=== PATIENT | female | born 1990 | race African-American/Black ===

== ENCOUNTER 2016-07-02 13:14 | Emergency (ER) | payer MEDICAID | END 2016-07-02 14:34 | disposition home or self-care (01) | DX: N30.01 Acute cystitis with hematuria (principal); J45.909 Unspecified asthma, uncomplicated; Z87.19 Personal history of other diseases of the digestive system ==

== ENCOUNTER 2016-08-21 18:35 | Emergency (ER) | payer MEDICAID ==
[2016-08-21 18:43] VITALS: BP 134/75
--- NOTE | 2016-08-21 19:20 | ED Physician Documentation ---
PD HPI UPPER EXT INJURY - Stated complaint Stated Complaint: L SHOULDER PAIN - Chief complaint Chief Complaint: Ext Problem - History obtained from History obtained from: Patient - History of Present Illness Location: Left, Shoulder Type of injury: No: Fall, Twist, Blunt / blow Timing - onset: How many days ago (2) Timing - duration: Days (2) Timing - details: Gradual onset, Still present, Waxing and waning Improved by: Rest Worsened by: Moving, Other (abduction and rotational movements. Hurts suprascapular area to posterior shoulder.) Associated symptoms: No: Weakness, Numbness, Swelling Similar symptoms before: Has not had sx before Recently seen: Not recently seen Review of Systems Constitutional: denies: Fever, Chills Skin: denies: Rash, Lesions Neurologic: denies: Focal weakness, Numbness PD PAST MEDICAL HISTORY - Past Medical History Past Medical History: Yes Cardiovascular: None Respiratory: Asthma Neuro: None Endocrine/Autoimmune: None GI: Pancreatitis NEGATIVE TURNER: None : None HEENT: None Psych: Depression, Anxiety Musculoskeletal: Other Derm: None - Past Surgical History Past Surgical History: Yes General: Other /NEGATIVE TURNER: section, Tubal ligation - Present Medications Home Medications: Ambulatory Orders Medication Instructions Recorded Confirmed Albuterol Sulfate [Proair Hfa 8.5 gm PO Q6HR PRN 07/02/16 08/21/16 Inhaler] Beclomethasone 40 Mcg [Qvar 40] 1 puffs PO DAILY 08/21/16 08/21/16 Dexamethasone [Decadron] 4 mg PO DAILY #5 tablet 08/21/16 Naproxen 375 mg PO BID #20 tablet 08/21/16 Oxycodone HCl/Acetaminophen 1 each PO Q6H PRN #15 tablet 08/21/16 [Percocet 5-325 mg Tablet] - Allergies Allergies/Adverse Reactions: Allergies Allergy/AdvReac Type Severity Reaction Status Date / Time bismuth subsalicylate Allergy Unknown Verified 08/21/16 18:43 [From Pepto-Bismol] - Social History Does the pt smoke?: Yes Smoking Status: Current every day smoker Does the pt drink ETOH?: No Does the pt have substance abuse?: No - Immunizations Immunizations are current?: Yes - POLST Patient has POLST: No PD ED PE NORMAL - Vitals Vital signs reviewed: Yes - General General: Alert and oriented X 3, No acute distress, Well developed/nourished - Neck Neck: Supple, no meningeal sign, No bony TTP, No adenopathy - Derm Derm: Normal color, Warm and dry, No rash - Extremities Extremities: Other (left shoulder tender posteriorly and also some tender in suprascapular area. ) - Neuro Neuro: Alert and oriented X 3, No motor deficit, No sensory deficit, Normal speech Results - Vitals Vitals: Oxygen O2 Source Room air PD MEDICAL DECISION MAKING - ED course Complexity details: considered differential, d/w patient Departure - Departure Disposition: Home, Self Care Clinical Impression: Shoulder tendonitis Qualifiers: Laterality: left Qualified Code(s): M75.82 - Other shoulder lesions, left shoulder Condition: Stable Record reviewed to determine appropriate education?: Yes Instructions: Tendonitis and Tenosynovitis Follow-Up: Anthony Narvaez MD [Provider Admit Priv/Credential] - Prescriptions: Dexamethasone [Decadron] 4 mg PO DAILY #5 tablet Naproxen 375 mg PO BID #20 tablet Oxycodone HCl/Acetaminophen [Percocet 5-325 mg Tablet] 1 each PO Q6H PRN #15 tablet PRN Reason: Pain Comments: Limited lifting and repetitive use of the left arm/shoulder for 4-5 days. Change to Naproxen twice daily and also add steroid Decadron daily for 5 days. Tylenol or Percocet for pain as needed. Recheck with Ortho/PMD if not better over the next 5-6 days. Forms: Activity restrictions Discharge Date/Time: 08/21/16 19:58
[2016-08-21] MEDS ORDERED: DEXAMETHASONE 10 MG/ML VIAL PO STA (19:47)
[2016-08-21] MEDS ORDERED: oxyCOD/ACETAMIN 5 MG/325 MG TABLET PO STA (19:47)
[2016-08-21] MEDS ORDERED: oxyCOD/ACETAMIN 5 MG/325 MG TABLET PO ONE (19:49)
[2016-08-21] MEDS ORDERED: DEXAMETHASONE 10 MG/ML VIAL ONE (19:50)
== END 2016-08-21 19:58 | disposition home or self-care (01) ==
LOC: ED 18:35
DX: M75.92 Shoulder lesion, unspecified, left shoulder (principal); W01.0XXA Fall on same level from slipping, tripping and stumbling without subsequent striking against object, initial encounter; J45.909 Unspecified asthma, uncomplicated; F17.200 Nicotine dependence, unspecified, uncomplicated
CPT/HCPCS: 99283; A9270

== ENCOUNTER 2017-09-30 13:57 | Emergency (ER) | payer MEDICAID ==
[2017-09-30] MEDS ORDERED: predniSONE 20 MG TABLET PO STA (14:51)
[2017-09-30] MEDS ORDERED: IPRATROPIUM/ALBUTEROL 3 ML NEB INH STA (14:51)
--- NOTE | 2017-09-30 15:41 | XRAY Report ---
Procedure Date: 09/30/2017 Accession Number: [id number] / [id number] Procedure: XR - Chest 2 View X-Ray CPT Code: 96311 FULL RESULT: EXAM: CHEST RADIOGRAPHY EXAM DATE: 09/30/2017 03:34 PM. CLINICAL HISTORY: Persistent cough. COMPARISON: 06/15/2008. TECHNIQUE: 2 views. FINDINGS: Lungs/Pleura: No focal opacities evident. No pleural effusion. No pneumothorax. Normal volumes. Mediastinum: Heart and mediastinal contours are unremarkable. Other: None. IMPRESSION: Normal 2-view chest radiography. [facility]
[2017-09-30 16:03] VITALS: BP 116/76
--- NOTE | 2017-09-30 16:05 | ED Physician Documentation ---
PD HPI DYSPNEA - Stated complaint Stated Complaint: COUGH/CONGESTED - Chief complaint Chief Complaint: Resp - History obtained from History obtained from: Patient - History of Present Illness Timing - onset: How many weeks ago (2) Timing - details: Gradual onset, Still present Inciting event(s): Out of meds Improved by: O2, Inhaler/neb Worsened by: Exertion Associated symptoms: Cough, Wheezing. No: Fever Similar symptoms before: Work up / diagnostics, Treatment Recently seen: Not recently seen - Additional information Additional information: patient is a 27 year old female with a history of ashtma who is presenting to the emergency department for wheezing and shortness of breath. Patient states that her symptoms have been going on for a few weeks and she thinks she needs an inhaler. Patient denies any fever or chills. 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: section, Tubal ligation - Present Medications Home Medications: Ambulatory Orders Medication Instructions Recorded Confirmed Albuterol Sulfate [Proair Hfa 8.5 gm PO Q6HR PRN 07/02/16 08/21/16 Inhaler] Albuterol 2.5 mg INH Q4H PRN #30 neb 09/30/17 Albuterol Sulf [Ventolin Hfa 2 puffs INH Q4HR PRN #1 inhaler 09/30/17 Inhaler] Fluticasone 44 Mcg [Flovent] 2 puffs INH BID #1 inhaler 09/30/17 Fluticasone [Flonase] 1 sprays DAT DAILY 09/30/17 09/30/17 Loratadine [Claritin] 10 mg PO 09/30/17 predniSONE [Prednisone] 40 mg PO DAILY 5 Days tablet 09/30/17 - Allergies Allergies/Adverse Reactions: Allergies Allergy/AdvReac Type Severity Reaction Status Date / Time bismuth subsalicylate Allergy Unknown Verified 09/30/17 14:05 [From Pepto-Bismol] - Social History Does the pt smoke?: Yes Smoking Status: Former smoker Does the pt drink ETOH?: No Does the pt have substance abuse?: No - Immunizations Immunizations are current?: Yes - POLST Patient has POLST: No PD ED PE NORMAL - Vitals Vital signs reviewed: Yes - General General: Alert and oriented X 3 - HEENT HEENT: Atraumatic - Neck Neck: No JVD - Cardiac Cardiac: RRR - Extremities Extremities: No calf tenderness / cord - Neuro Neuro: Alert and oriented X 3 Eye Opening: Spontaneous PD ED PE EXPANDED - Respiratory Respiratory: Wheezing, Right upper lobe, Right middle lobe, Right lower lobe, Left upper lobe, Left lower lobe. No: Distress Results - Vitals Vitals: Vital Signs - 24 hr 09/30/17 09/30/17 09/30/17 14:03 15:09 16:02 Temperature 36.5 C 36.5 C Heart Rate 105 H 110 H 98 Respiratory 18 18 18 Rate Blood Pressure 129/82 H 116/76 O2 Saturation 98 96 Oxygen O2 Source Room air - Rads (name of study) chest x-ray Radiology: Final report received (no acute pulmonary pathology) PD MEDICAL DECISION MAKING - ED course Complexity details: reviewed old records, reviewed results, re-evaluated patient , considered differential, d/w patient ED course: Patient was seen and examined at bedside. Patient had wheezing in most agarwal. Patient was started on prednisone and duoneb treatments. chest xray was within normal limits. Patient was still wheezing after her original treatments but stated that she wanted to go home. Patient stated she could do more treatments at home. Patient was saturating well on room air and was stable for discharge with outpatient follow up. - Sepsis Event Vital Signs: Vital Signs - 24 hr 09/30/17 09/30/17 09/30/17 14:03 15:09 16:02 Temperature 36.5 C 36.5 C Heart Rate 105 H 110 H 98 Respiratory 18 18 18 Rate Blood Pressure 129/82 H 116/76 O2 Saturation 98 96 Oxygen O2 Source Room air Departure - Departure Disposition: 01 Home, Self Care Clinical Impression: Asthma Condition: Good Instructions: ED Bronchitis Asthmatic Follow-Up: primary,care provider [Other] - Within 3 Days Prescriptions: Albuterol Sulf [Ventolin Hfa Inhaler] 2 puffs INH Q4HR PRN #1 inhaler PRN Reason: Wheezing Albuterol 2.5 mg INH Q4H PRN #30 neb PRN Reason: Wheezing Fluticasone 44 Mcg [Flovent] 2 puffs INH BID #1 inhaler predniSONE [Prednisone] 40 mg PO DAILY 5 Days tablet Comments: Your diagnostics today were within normal limits. there is no sign of pneumonia but your symptoms are likely being caused by bronchitis. you should continue with the prednisone for the next 4 days and then back to your maintenance therapy. You may return to the emergency department at any time for new, worsening or uncontrollable symptoms. Discharge Date/Time: 09/30/17 16:24
== END 2017-09-30 16:24 | disposition home or self-care (01) ==
LOC: ED 13:57
DX: J45.909 Unspecified asthma, uncomplicated (principal); Z87.891 Personal history of nicotine dependence
CPT/HCPCS: 71046; 99283; J7512

== ENCOUNTER 2017-11-09 09:56 | Emergency (ER) | payer MEDICAID ==
[2017-11-09 10:04] VITALS: BP 129/83
[2017-11-09] MEDS ORDERED: DEXAMETHASONE 10 MG/ML VIAL PO STA (10:40)
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
== END 2017-11-09 10:58 | disposition home or self-care (01) ==
LOC: ED 09:56
DX: M43.6 Torticollis (principal); F17.200 Nicotine dependence, unspecified, uncomplicated
CPT/HCPCS: 99283

== ENCOUNTER 2018-01-20 16:48 | Emergency (ER) | payer OTHER, MEDICAID ==
[2018-01-20 17:13] VITALS: BP 119/74
[2018-01-20] MEDS ORDERED: CYCLOBENZAPRINE 10 MG TABLET PO STA (19:43)
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
== END 2018-01-20 21:25 | disposition home or self-care (01) ==
LOC: ED 16:48
DX: S13.9XXA Sprain of joints and ligaments of unspecified parts of neck, initial encounter (principal); V43.62XA Car passenger injured in collision with other type car in traffic accident, initial encounter; F17.200 Nicotine dependence, unspecified, uncomplicated
CPT/HCPCS: 72040; 99283; A9270

== ENCOUNTER 2018-11-26 08:00 | Outpatient (CLI) | payer MEDICAID ==
[2018-11-26 18:58] LABS: BASOPHILS % (AUTO) 0.3 %; EOSINOPHILS # (AUTO) 0.3 10^3/uL (0.0-0.7); EOSINOPHILS % (AUTO) 5.4 %; HGB - HEMOGLOBIN 13.3 g/dL (12.0-16.0); LYMPHOCYTES # (AUTO) 2.6 10^3/uL (1.5-3.5); LYMPHOCYTES % (AUTO) 41.1 %; MEAN CORPUSCULAR HEMOGLOBIN 28.7 pg (27.0-31.0); MEAN CORPUSCULAR VOLUME 86.9 fL (81.0-99.0); MEAN PLATELET VOLUME 10.6 fL (7.9-10.8); MONOCYTES # (AUTO) 0.5 10^3/uL (0.0-1.0); MONOCYTES % (AUTO) 7.3 %; NEUTROPHILS # (AUTO) 2.9 10^3/uL (1.5-6.6); NEUTROPHILS % (AUTO) 45.6 %; PLT - PLATELET COUNT 247 10^3/uL (130-450); RED BLOOD COUNT 4.64 10^6/uL (4.20-5.40); RED CELL DISTRIBUTION WIDTH 13.2 % (12.0-15.0); WHITE BLOOD COUNT 6.3 x10^3/uL (4.8-10.8)
[2018-11-26 19:11] LABS: CALCIUM 9.3 mg/dL (8.5-10.3)
== END 2018-11-26 23:59 | disposition home or self-care (01) ==
LOC: LAB.N 08:00
PROVIDERS: ATTEND Physician Assistant Medical
DX: R55 Syncope and collapse (principal)
CPT/HCPCS: 36415; 80048; 85025

== ENCOUNTER 2020-01-19 16:58 | Outpatient (CLI) | payer MEDICAID ==
[2020-01-19 18:31] LABS: BASOPHILS % (AUTO) 0.4 %; EOSINOPHILS # (AUTO) 0.2 10^3/uL (0.0-0.7); EOSINOPHILS % (AUTO) 3.1 %; HGB - HEMOGLOBIN 11.9 g/dL (12.0-16.0); LYMPHOCYTES % (AUTO) 28.8 %; MEAN CORPUSCULAR HEMOGLOBIN 27.6 pg (27.0-31.0); MEAN CORPUSCULAR HGB CONC 31.7 g/dL (32.0-36.0); MEAN PLATELET VOLUME 10.5 fL (7.9-10.8); MONOCYTES # (AUTO) 0.5 10^3/uL (0.0-1.0); MONOCYTES % (AUTO) 6.7 %; NEUTROPHILS # (AUTO) 4.2 10^3/uL (1.5-6.6); NEUTROPHILS % (AUTO) 60.6 %; PLT - PLATELET COUNT 216 10^3/uL (130-450); RED BLOOD COUNT 4.31 10^6/uL (4.20-5.40); RED CELL DISTRIBUTION WIDTH 13.3 % (12.0-15.0); WHITE BLOOD COUNT 6.9 x10^3/uL (4.8-10.8)
[2020-01-19 18:55] LABS: ALBUMIN 4.3 g/dL (3.2-5.5); ALBUMIN/GLOBULIN RATIO 1.4 (1.0-2.2); BILIRUBIN,TOTAL 0.2 mg/dL (0.2-1.0); CALCIUM 9.2 mg/dL (8.5-10.3); TOTAL PROTEIN 7.3 g/dL (6.7-8.2)
[2020-01-19 19:03] LABS: HEMOGLOBIN A1c% 5.4 % (4.27-6.07)
== END 2020-01-19 23:59 | disposition home or self-care (01) ==
LOC: LAB.WCP 16:58
PROVIDERS: ATTEND Physician Assistant
DX: R55 Syncope and collapse (principal)
CPT/HCPCS: 36415; 80053; 83036; 84443; 85025

== ENCOUNTER 2020-02-03 10:08 | Outpatient (CLI) | payer MEDICAID ==
[2020-02-03] MEDS ORDERED: IOVERSOL 320 100 ML VIAL IVP ONE ×2 (10:33→18:52)
--- NOTE | 2020-02-03 12:58 | CT Report ---
PROCEDURE: ANGIO CHEST W/WO INDICATIONS: NEAR SYNCOPE CONTRAST: IV CONTRAST: Optiray 320 ml: 70 PO CONTRAST: *NO PO CONTRAST TECHNIQUE: After the administration of intravenous contrast, 2 mm thick sections acquired from the pulmonary api pierre to the posterior costophrenic angles. 3-dimensional maximum intensity projection (MIP) coronal a nd sagittal reformats were then acquired through the thorax. For radiation dose reduction, the follow ing was used: automated exposure control, adjustment of mA and/or kV according to patient size. COMPARISON: FINDINGS: Image quality: Excellent. Pulmonary arteries: Pulmonary arteries are normal in size, and demonstrate no intraluminal filling d efects to suggest central pulmonary embolism. Lungs and pleura: Lungs are clear. No pleural effusions or pneumothorax. Central and peripheral ai rways are patent. Mediastinum: Heart size is normal, without pericardial effusion. No mediastinal or hilar adenopathy . Thoracic aorta is normal in caliber and enhancement. Esophagus is normal in caliber, without hiat al hernia. Bones and chest wall: No suspicious bony lesions. Ribs and thoracic spine appear intact throughout. The thyroid is normal. No axillary or supraclavicular adenopathy. Abdomen: Visualized upper abdominal solid organs appear normal in the early arterial phase of enhanc ement. IMPRESSION: No pulmonary embolus is seen, there is no sign of cardiac enlargement or pericardial effusion. Source of near syncopal episode is not found. Reviewed by: Balwinder Steele MD on 02/03/2020 12:57 PM [facility] Approved by: Balwinder Steele MD on 02/03/2020 12:57 PM PST Station ID: [id number]
== END 2020-02-03 10:09 | disposition home or self-care (01) ==
LOC: DI 10:08
PROVIDERS: ATTEND Physician Assistant
DX: R55 Syncope and collapse (principal); R06.02 Shortness of breath
CPT/HCPCS: 71275; 93306; Q9967

== ENCOUNTER 2020-11-14 07:51 | Emergency (ER) | payer MEDICAID ==
--- NOTE | 2020-11-14 08:07 | ED Physician Documentation ---
PD HPI UPPER EXT INJURY - Stated complaint Stated Complaint: RT SHOULDER PX - Chief complaint Chief Complaint: Ext Problem - History obtained from History obtained from: Patient - History of Present Illness Location: Right, Shoulder Type of injury: Other (repetitive lifting and turning at work. gradual onset of pain anterolateral shoulder.). No: Fall, Twist Where injury occurred: Work Timing - onset: How many days ago (3-4) Timing - duration: Days (3-4) Worsened by: Moving (abduction and extension, but not hurting with internal/external rotation nor with reaching behind own back.) Associated symptoms: No: Weakness, Numbness, Swelling, Discolored Similar symptoms before: Has not had sx before Review of Systems Constitutional: denies: Fever, Chills Nose: denies: Rhinorrhea / runny nose, Congestion Throat: denies: Sore throat Respiratory: denies: Cough Skin: denies: Rash, Lesions Neurologic: denies: Focal weakness, Numbness PD PAST MEDICAL HISTORY - Past Medical History Cardiovascular: None Respiratory: Asthma Neuro: None Endocrine/Autoimmune: None GI: Pancreatitis 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 : None HEENT: None Psych: Depression, Anxiety Musculoskeletal: Other Derm: None - Past Surgical History Past Surgical History: Yes 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, Tubal ligation - Present Medications Home Medications: Ambulatory Orders Medication Instructions Recorded Confirmed Albuterol Sulfate [Proair Hfa 8.5 gm PO Q6HR PRN 07/02/16 11/14/20 Inhaler] Budesonide/Formoterol Fumarate 1 inh INH DAILY 11/14/20 11/14/20 [Symbicort 160-4.5 Mcg Inhaler] HYDROcod/ACETAM 5/325 [[place] 5/325] 1 ea PO Q6H PRN #10 tablet 11/14/20 Montelukast Sodium 10 mg PO DAILY 11/14/20 11/14/20 dexAMETHasone [Decadron] 4 mg PO DAILY #5 tablet 11/14/20 tiZANidine [Zanaflex] 4 mg PO Q8H PRN #25 tablet 11/14/20 - Allergies Allergies/Adverse Reactions: Allergies Allergy/AdvReac Type Severity Reaction Status Date / Time bismuth subsalicylate Allergy Unknown Verified 11/14/20 08:05 [From Pepto-Bismol] - Social History Does the pt smoke?: Yes Smoking Status: Current every day smoker Does the pt drink ETOH?: No Does the pt have substance abuse?: No - Immunizations Immunizations are current?: Yes - POLST Patient has POLST: No PD ED PE NORMAL - Vitals Vital signs reviewed: Yes - General General: Alert and oriented X 3, No acute distress, Well developed/nourished - Derm Derm: Normal color, Warm and dry, No rash - Extremities Extremities: Other (right shoulder with muscular tenderness suprascapular area and to lateral shoulder. ) - Neuro Neuro: Alert and oriented X 3, No motor deficit, No sensory deficit Results - Vitals Vitals: Vital Signs - 24 hr 11/14/20 11/14/20 08:02 08:52 Temperature 37.2 C 36.5 C Heart Rate 87 81 Respiratory 16 12 Rate Blood Pressure 120/61 140/100 H O2 Saturation 99 98 Oxygen O2 Source Room air PD MEDICAL DECISION MAKING - ED course Complexity details: considered differential (gradual onset with repetitive use, no impact/forceful injury. Seems c/w tendonitis acutely. ), d/w patient Departure - Departure Disposition: 01 Home, Self Care Clinical Impression: Shoulder tendonitis Qualifiers: Laterality: right Qualified Code(s): M77.8 - Other enthesopathies, not elsewhere classified Condition: Stable Record reviewed to determine appropriate education?: Yes Instructions: Tendonitis and Tenosynovitis Follow-Up: Clovis Clarke MD [Provider Admit Priv/Credential] - Prescriptions: dexAMETHasone [Decadron] 4 mg PO DAILY #5 tablet HYDROcod/ACETAM 5/325 [[place] 5/325] 1 ea PO Q6H PRN #10 tablet PRN Reason: Pain tiZANidine [Zanaflex] 4 mg PO Q8H PRN #25 tablet PRN Reason: Spasms Comments: This does sound likely to be some inflammation of the muscle tendons through the shoulder (tendinitis). This often represents an overuse injury. As such have light use of the right arm and shoulder for the next 4 to 5 days. Use the sling periodically if needed for comfort. Use range of motion of the shoulder periodically however to keep it from being stiff. Anti-inflammatories of Decadron steroid daily for the next 5 days. Tizanidine muscle relaxant for spasms and stiffness. Add Tylenol every 4-6 hours if needed for pain or hydrocodone if needed for worse pain. My narcotic instructions I am prescribing a short course of narcotic pain medication for you. These are potentially dangerous and addictive medications that should be used carefully. These medications may constipate you. Take an cvhp-yzf-ohuatpb stool softener such as docusate twice daily with plenty of water while taking these medications. If you go 24 hours without a bowel movement, take zijs-bin-fiqlaav MiraLAX, per package instructions. Do not drink or drive while taking these medications. If you received narcotic or sedating medications while in the emergency depart ment do not drive for 24 hours. Store this medication in a safe, secure place and out of reach of children. It is a violation of federal law to give or sell this medication to another person or to use in a manner other than prescribed. The ED will not refill narcotic prescriptions, including prescriptions lost or stolen. You can dispose of unwanted medications at the [facility]'s office or at several pharmacies such as [facility]. Recheck if not better over the next week. Forms: Activity restrictions Discharge Date/Time: 11/14/20 08:54
[2020-11-14] MEDS ORDERED: DEXAMETHASONE 10 MG/ML VIAL PO STA (08:26)
[2020-11-14] MEDS ORDERED: methocarbamoL 500 MG TABLET PO STA (08:26)
[2020-11-14] MEDS ORDERED: CHERRY SYRUP 10 ML UDC PO ONE (08:26)
[2020-11-14] MEDS ORDERED: ACETAMINOPHEN 325 MG TABLET PO STA (08:27)
[2020-11-14 08:53] VITALS: BP 140/100
== END 2020-11-14 08:54 | disposition home or self-care (01) ==
LOC: ED 07:51
DX: M70.811 Other soft tissue disorders related to use, overuse and pressure, right shoulder (principal); Y93.89 Activity, other specified; Y99.0 Civilian activity done for income or pay; F17.200 Nicotine dependence, unspecified, uncomplicated
CPT/HCPCS: 99283; A9270

== ENCOUNTER 2021-01-23 18:21 | Emergency (ER) | payer MEDICAID ==
--- NOTE | 2021-01-23 18:54 | XRAY Report ---
PROCEDURE: Foot 3 View LT INDICATIONS: Trauma TECHNIQUE: 3 views of the foot were acquired. COMPARISON: None FINDINGS: Bones: No fractures or dislocations. No suspicious bony lesions. Soft tissues: No tibiotalar joint effusion. Achilles tendon appears normal. IMPRESSION: No acute left foot fracture or dislocation. Reviewed by: Ladarius Bundy MD on 01/23/2021 6:53 PM PDT Approved by: Ladarius Bundy MD on 01/23/2021 6:53 PM PDT Station ID: [id number]
[2021-01-23] MEDS ORDERED: oxyCODONE 5 MG TABLET PO STA (19:34)
--- NOTE | 2021-01-23 19:38 | ED Physician Documentation ---
PD HPI LOWER EXT INJURY - Stated complaint Stated Complaint: L FOOT INJURY - Chief complaint Chief Complaint: Trauma Ext - History obtained from History obtained from: Patient - History of Present Illness PD HPI LOW EXT INJURY LOCATION: Left Type of injury: Twist Where injury occurred: Street Pain level max: 8 Pain level now: 8 Improved by: Rest Worsened by: Moving, Palpating Associated symptoms: Swelling - Additional information Additional information: Patient is a 30-year-old female who presents to the emergency department after twisting her foot while walking off of a curb at approximately 1:00 today. The pain is steadily increased since that time. Not relieved with Motrin and Tylenol. Worse with walking, better with rest. 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, Tubal 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 - Present Medications Home Medications: Ambulatory Orders Medication Instructions Recorded Confirmed Albuterol Sulfate [Proair Hfa 8.5 gm PO Q6HR PRN 07/02/16 11/14/20 Inhaler] Budesonide/Formoterol Fumarate 1 inh INH DAILY 11/14/20 11/14/20 [Symbicort 160-4.5 Mcg Inhaler] HYDROcod/ACETAM 5/325 [[place] 5/325] 1 ea PO Q6H PRN #10 tablet 11/14/20 Montelukast Sodium 10 mg PO DAILY 11/14/20 11/14/20 dexAMETHasone [Decadron] 4 mg PO DAILY #5 tablet 11/14/20 tiZANidine [Zanaflex] 4 mg PO Q8H PRN #25 tablet 11/14/20 Ibuprofen [Motrin] 800 mg PO Q8H PRN #30 tablet 01/23/21 Oxycodone HCl/Acetaminophen 1 - 2 each PO Q6H PRN #14 tablet 01/23/21 [Percocet 5-325 mg Tablet] - Allergies Allergies/Adverse Reactions: Allergies Allergy/AdvReac Type Severity Reaction Status Date / Time bismuth subsalicylate Allergy Unknown Verified 01/23/21 18:28 [From Pepto-Bismol] - Social History Does the pt smoke?: Yes Smoking Status: Current every day smoker Does the pt drink ETOH?: No Does the pt have substance abuse?: No - Immunizations Immunizations are current?: Yes - POLST Patient has POLST: No PD ED PE NORMAL - Vitals Vital signs reviewed: Yes - General General: Alert and oriented X 3, No acute distress - HEENT HEENT: Moist mucous membranes - Derm Derm: Warm and dry - Extremities Extremities: Other (No tenderness about the left ankle. There is some tenderness over the dorsum of the left foot and near the base of the fifth metatarsal. Neurovascularly intact. Otherwise normal examination of the foot and ankle) - Neuro Neuro: Alert and oriented X 3 Results - Vitals Vitals: Vital Signs - 24 hr 01/23/21 01/23/21 18:28 19:54 Temperature 36.5 C 36.5 C Heart Rate 100 89 Respiratory 16 16 Rate Blood Pressure 130/90 H 131/88 H O2 Saturation 98 99 Oxygen O2 Source Room air - Rads (name of study) Left foot x-ray Radiology: Final report received, EMP read contemporaneously, See rad report (No acute bony abnormality) PD MEDICAL DECISION MAKING - ED course Complexity details: reviewed results, re-evaluated patient, considered differential, d/w patient ED course: Patient given crutches and placed in a postoperative shoe. No acute findings on x-ray. We will place on pain medication for home and have her follow-up with her doctor if she is still having symptoms in 1 week. I am prescribing a short course of short-acting opioid pain medication for this patient. 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 I have discussed that the opioids are for short term therapy only, and will not be refilled from the ED. patient counseled regarding signs and symptoms for which I believe and urgent re-evaluation would be necessary. Patient with good understanding of and agreement to plan and is comfortable going home at this time This document was made in part using voice recognition software. While efforts are made to proofread this document, sound alike and grammatical errors may occur. Departure - Departure Disposition: 01 Home, Self Care Clinical Impression: Sprain of left foot Qualifiers: Encounter type: initial encounter Qualified Code(s): S93.602A - Unspecified sprain of left foot, initial encounter Condition: Good Instructions: ED Sprain Foot Follow-Up: your,doctor in 1 week for repeat evaluation [Other] Prescriptions: Ibuprofen [Motrin] 800 mg PO Q8H PRN #30 tablet PRN Reason: PAIN &/OR FEVER Oxycodone HCl/Acetaminophen [Percocet 5-325 mg Tablet] 1 - 2 each PO Q6H PRN #14 tablet PRN Reason: pain Comments: Your prescriptions were sent to [facility] in [place]. Please follow-up with your doctor for further care. You may bear weight as tolerated. Your x-ray does not show any acute abnormalities today. Continue to rest and ice the area. I am prescribing a short course of narcotic pain medication for you. These are potentially dangerous and addictive medications that should be used carefully. These medications may constipate you. Take an mcxq-mym-egycvha stool softener (docusate) twice daily with plenty of water while taking these medications. If you go 24 hours without a bowel movement, take cgjp-dqr-nqkzakk miralax, per package instructions. Do not drink or drive while taking these medications. If you received narcotic or sedating medications while in the emergency department, do not drive for 24 hours. Store this medication in a safe, secure place and out of reach of children. It is a violation of federal law to give or sell this medication to another person or to use in a manner other than prescribed. The ED will not refill narcotic prescriptions, including prescriptions lost or stolen. To dispose of unwanted medications: 1. [facility] at [address] [facility] [facility] in [place] has a medication drop box. They accept prescription medications (in pill form) Saturday through Saturday 9:00 a.m. to 5:00 p.m. 2. [facility], [place] [employer] accepts prescription medications (in pill form only) for disposal year round. Call for more information. 3. Contact the [facility] for the next [facility] sponsored prescription sha g collection event. , [phone], or [phone]; Discharge Date/Time: 01/23/21 19:57
[2021-01-23 19:55] VITALS: BP 131/88
== END 2021-01-23 19:57 | disposition home or self-care (01) ==
LOC: ED 18:21
DX: S93.602A Unspecified sprain of left foot, initial encounter (principal); X50.1XXA Overexertion from prolonged static or awkward postures, initial encounter; Y93.01 Activity, walking, marching and hiking; Y92.410 Unspecified street and highway as the place of occurrence of the external cause; F17.200 Nicotine dependence, unspecified, uncomplicated
CPT/HCPCS: 73630; 99283; A9270

== ENCOUNTER → 2021-07-05 | Outpatient (CLI) | payer OTHER, MEDICAID | LOC: LAB.N 08:00 | PROVIDERS: ATTEND Family Medicine | DX: J03.90 Acute tonsillitis, unspecified (principal) | CPT/HCPCS: 87070 ==

== ENCOUNTER 2022-07-27 08:47 | Outpatient (CLI) | payer OTHER, MEDICAID | END 2022-07-27 08:48 | disposition home or self-care (01) | LOC: MAC.INF 08:47 | PROVIDERS: ATTEND Nurse Practitioner | DX: R00.2 Palpitations (principal) | CPT/HCPCS: 93246 ==

== ENCOUNTER 2022-07-29 08:12 | Emergency (ER) | payer OTHER, MEDICAID ==
--- OUTSIDE RECORDS SUMMARY | 2022-07-29 08:42 | EXTERNAL MEDICAL SUMMARY RPT | Continuity of Care Document ---
:1990 Author Organization [facility] Address [address] [place] [address] Phone Allergies No information. Encounters No information. Functional Status No information. Immunizations No information. Medications No information. Problems date description facility 2022-07-16 12:[address] [facility] Procedures No information. Results/Labs No information. Social History No information. Vital Signs No information.
--- NOTE | 2022-07-29 09:12 | ED Physician Documentation ---
PD HPI HEENT - Stated complaint Stated Complaint: LT BLACK EYE - Chief complaint Chief Complaint: Heent - History obtained from History obtained from: Patient - Additional information Additional information: The pt comes to the ED with CC of discoloration under her L eye. She states it looks like a bruise, but she does not know how it got there. She is not aware of any trauma. She began to notice a few days ago that the area felt sore to the touch, and over the course of that time, began to notice development of a small contusion tracking under her lower eyelid. She reports slight puffiness o f her upper eyelid, but no pain. No visual changes. No eye discomfort, redness, or discharge. No other complaints at this time. 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, Tubal ligation - Present Medications Home Medications: Ambulatory Orders Medication Instructions Recorded Confirmed Albuterol Sulfate [Proair Hfa 1 - 4 puffs IH Q4HR PRN 07/02/16 07/29/22 Inhaler] Budesonide/Formoterol Fumarate 1 inh INH DAILY 11/14/20 07/29/22 [Symbicort 160-4.5 Mcg Inhaler] Montelukast Sodium 10 mg PO DAILY 11/14/20 07/29/22 Ipratropium/Albuterol [Duoneb] 3 ml INH Q6H PRN 08/29/21 07/29/22 Triamcinolone Acetonide [Nasacort] 2 spr NS DAILY 08/29/21 07/29/22 - Allergies Allergies/Adverse Reactions: Allergies Allergy/AdvReac Type Severity Reaction Status Date / Time bismuth subsalicylate Allergy Unknown Verified 07/29/22 08:21 [From Pepto-Bismol] - Social History Does the pt smoke?: No Smoking Status: Never smoker Does the pt drink ETOH?: Yes Does the pt have substance abuse?: No - Immunizations Immunizations are current?: Yes - POLST Patient has POLST: No PD ED PE NORMAL - Vitals Vital signs reviewed: Yes - General General: Alert and oriented X 3, No acute distress, Well developed/nourished - HEENT HEENT: PERRL, EOMI, Moist mucous membranes, Other (mild, small contusion tracking along the inferior edge of L lower eyelid. Minimal edema. No conjunctival injection. No hyphema or subconj. hemorrhage. Mild tenderness of eyelid. No signs of other facial trauma.) - Respiratory Respiratory: No respiratory distress - Derm Derm: Warm and dry - Extremities Extremities: No deformity - Neuro Neuro: Alert and oriented X 3 - Psych Psych: Normal mood, Normal affect Results - Vitals Vitals: Oxygen O2 Source Room air PD Medical Decision Making - ED course Complexity details: considered differential, d/w patient ED course: I d/w the pt that I am not sure what has caused her sx today. She does not recall any trauma, and there is no evidence of infection. Physical exam findings are minimal, and the pt is well-appearing. I suspect this is a benign process, but we have discussed the need for follow-up for further concerns. Departure - Departure Disposition: 01 Home, Self Care Clinical Impression: Periorbital contusion of left eye Qualifiers: Encounter type: initial encounter Qualified Code(s): S05.12XA - Contusion of eyeball and orbital tissues, left eye, initial encounter Condition: Stable Instructions: Black Eye Comments: It is not clear what has caused the apparent bruising on your face. There is no evidence of infection and the discoloration is nonblanching, indicating that it is from broken blood vessels. This would be consistent with a bruise. There are other conditions that can cause this but generally, we would not expect the findings to be so focused to such a small area. There is no thickening of the tissue, inflammatory redness, or sensation of a pocket of fluid under the skin to indicate a soft tissue infection. You do not have any clogged ducts or hair follicles along your eyelid and the inside of your light eyelid and your eye both look good. You have not had any trauma that you can recall to raise concern for fractures to your facial bones. At this point in time, it is not clear what happened but there is no indication that there is anything more than a benign process that will resolve on its own. Please follow-up with your primary doctor as needed. If you begin to develop redness and firmness of the tissue, or if you develop fevers or chills, please have the area rechecked. Oth erwise, you may apply ice packs and use ibuprofen and Tylenol if needed. Discharge Date/Time: 07/29/22 09:21
[2022-07-29 09:21] VITALS: BP 123/77
== END 2022-07-29 09:21 | disposition home or self-care (01) ==
LOC: ED 08:12
DX: S05.12XA Contusion of eyeball and orbital tissues, left eye, initial encounter (principal)
CPT/HCPCS: 99281; 99283

== ENCOUNTER 2022-09-06 14:59 | Outpatient (CLI) | payer OTHER, MEDICAID | END 2022-09-06 15:00 | disposition home or self-care (01) | LOC: MAC.INF 14:59 | PROVIDERS: ATTEND Nurse Practitioner | DX: R94.31 Abnormal electrocardiogram [ECG] [EKG] (principal); I47.20 Ventricular tachycardia, unspecified; I49.1 Atrial premature depolarization; I49.3 Ventricular premature depolarization | CPT/HCPCS: 93248 ==

== ENCOUNTER 2022-12-02 15:50 | Emergency (ER) | payer OTHER, MEDICAID ==
[2022-12-02 16:14] LABS: BASOPHILS % (AUTO) 0.3 %; EOSINOPHILS # (AUTO) 0.3 10^3/uL (0.0-0.7); EOSINOPHILS % (AUTO) 2.7 %; HCT - HEMATOCRIT 39.5 % (37.0-47.0); HGB - HEMOGLOBIN 13.1 g/dL (12.0-16.0); LYMPHOCYTES # (AUTO) 3.3 10^3/uL (1.5-3.5); LYMPHOCYTES % (AUTO) 32.1 %; MEAN CORPUSCULAR HEMOGLOBIN 28.4 pg (27.0-31.0); MEAN CORPUSCULAR HGB CONC 33.2 g/dL (32.0-36.0); MEAN CORPUSCULAR VOLUME 85.7 fL (81.0-99.0); MEAN PLATELET VOLUME 9.8 fL (7.9-10.8); MONOCYTES # (AUTO) 0.8 10^3/uL (0.0-1.0); NEUTROPHILS # (AUTO) 5.8 10^3/uL (1.5-6.6); NEUTROPHILS % (AUTO) 56.5 %; PLT - PLATELET COUNT 270 10^3/uL (130-450); RED BLOOD COUNT 4.61 10^6/uL (4.20-5.40); RED CELL DISTRIBUTION WIDTH 12.8 % (12.0-15.0); WHITE BLOOD COUNT 10.2 x10^3/uL (4.8-10.8)
[2022-12-02 16:27] LABS: ALBUMIN 4.4 g/dL (3.2-5.5); ALBUMIN/GLOBULIN RATIO 1.6 (1.0-2.2); BILIRUBIN,TOTAL 0.3 mg/dL (0.2-1.0); CALCIUM 9.2 mg/dL (8.5-10.3); CREATININE 1.1 mg/dL (0.6-1.3); POTASSIUM 3.9 mmol/L (3.5-4.5); TOTAL PROTEIN 7.2 g/dL (6.4-8.9)
[2022-12-02 16:37] LABS: BILIRUBIN,URINE NEGATIVE (NEGATIVE); GLUCOSE, URINE (UA) NEGATIVE (NEGATIVE); KETONES,URINE (UA) NEGATIVE (NEGATIVE); LEUKOCYTE ESTERASE, URINE TRACE (NEGATIVE); NITRITE,URINE NEGATIVE (NEGATIVE); OCCULT BLOOD,URINE TRACE-INTA (NEGATIVE); PH,URINE 7.5 PH (5.0-7.5); PROTEIN,URINE NEGATIVE (NEGATIVE); UROBILINOGEN,URINE 0.2 (NORMAL) E.U./dL (NORMAL)
[2022-12-02 16:38] LABS: CLARITY,URINE HAZY (CLEAR); HCG UR QUAL NEGATIVE
[2022-12-02 16:47] LABS: BACTERIA,URINE Moderate /HPF (None Seen); RBC,URINE 0-5 /HPF (0-5); SQUAMOUS EPITHELIAL CELL,UR FEW Squamous (<= Few); WBC,URINE >25 /HPF (0-5)
[2022-12-02] MEDS: cefTRIAXone 1 GM VIAL IM STA (17:16)
[2022-12-02] MEDS: LIDOCAINE 1% 2 ML VIAL MC ONE (17:17)
[2022-12-02] MEDS: KETOROLAC 30 MG/ML VIAL IVP STA (17:19)
--- NOTE | 2022-12-02 17:23 | ED Physician Documentation ---
PD HPI ABD PAIN - Stated complaint Stated Complaint: BACK/SIDE PX - Chief complaint Chief Complaint: Abd Pain - History obtained from History obtained from: Patient - History of Present Illness Timing - onset: Today Timing - duration: Hours Timing - details: Gradual onset, Still present Quality: Aching, Pain Location: LUQ Radiation: Left flank Improved by: Other (nothing) Worsened by: Palpation Associated symptoms: Nausea. No: Fever, Vomiting, Hematemesis, Diarrhea, Constipation Similar symptoms before: Diagnosis (UTI) Recently seen: Not recently seen - Additional information Additional information: 32-year-old Carmen Espino comes to the emergency department today with a chief complaint that she has been having some spasms in her bladder yesterday and that today she has developed some pain in her left flank and she feels the pain radiating along her abdomen down into her pelvis. She has not had fever with this she has had slight nausea. She feels that the pain is worse with palpation and with movement and there is nothing that she has been able to do that will help with the pain. She cannot get into a specific position to get rid of it.She has not had fever or vomiting. Review of Systems Constitutional: denies: Fever Eyes: denies: Decreased vision Ears: denies: Ear pain, Drainage/discharge Nose: denies: Congestion Throat: denies: Sore throat Respiratory: denies: Dyspnea, Cough GI: reports: Abdominal Pain, Nausea. denies: Vomiting, Constipation, Diarrhea : reports: Dysuria, Frequency Skin: denies: Rash Musculoskeletal: reports: Back pain. denies: Neck pain, Extremity pain PD PAST MEDICAL HISTORY - Past Medical History Cardiovascular: None Respiratory: Asthma Neuro: None Endocrine/Autoimmune: None GI: Pancreatitis HIV PREVENTION SPECIALIST: Miscarriage(s) : None HEENT: None Psych: Depression, Anxiety Musculoskeletal: Other Derm: None - Past Surgical History Past Surgical History: Yes General: Other /HIV PREVENTION SPECIALIST: section, Tubal ligation - Present Medications Home Medications: Ambulatory Orders Medication Instructions Recorded Confirmed Albuterol Sulfate [Proair Hfa 1 - 4 puffs IH Q4HR PRN 07/02/16 07/29/22 Inhaler] Budesonide/Formoterol Fumarate 1 inh INH DAILY 11/14/20 07/29/22 [Symbicort 160-4.5 Mcg Inhaler] Montelukast Sodium 10 mg PO DAILY 11/14/20 07/29/22 Ipratropium/Albuterol [Duoneb] 3 ml INH Q6H PRN 08/29/21 07/29/22 Triamcinolone Acetonide [Nasacort] 2 spr NS DAILY 08/29/21 07/29/22 HYDROcod/ACETAM 5/325 [[place] 5/325] 1 - 2 tablet PO Q6H PRN #14 tablet 12/02/22 Metoprolol Succinate [Toprol Xl] 25 mg PO DAILY 12/02/22 12/02/22 Sulfamethox/Trimeth 800/160 1 each PO BID #14 tablet 12/02/22 [Bactrim Ds] - Allergies Allergies/Adverse Reactions: Allergies Allergy/AdvReac Type Severity Reaction Status Date / Time bismuth subsalicylate Allergy Unknown Verified 12/02/22 15:59 [From Pepto-Bismol] - Social History Does the pt smoke?: No Smoking Status: Never smoker Does the pt drink ETOH?: Yes Does the pt have substance abuse?: No - Immunizations Immunizations are current?: Yes - POLST Patient has POLST: No PD ED PE NORMAL - Vitals Vital signs reviewed: Yes (Hypertensive) - General General: Alert and oriented X 3, No acute distress, Well developed/nourished - HEENT HEENT: Atraumatic, PERRL, EOMI - Neck Neck: Supple, no meningeal sign, No bony TTP - Cardiac Cardiac: RRR, No murmur - Respiratory Respiratory: No respiratory distress, Clear bilaterally - Abdomen Abdomen: Normal bowel sounds, Soft, Non tender, Non distended, No organomegaly - Back Back: No spinal TTP, Other (There is CVA tenderness to the left kidney espec ially to bimanual palpation.) - Derm Derm: Normal color, Warm and dry, No rash - Extremities Extremities: No deformity, No edema - Neuro Neuro: Alert and oriented X 3, lead custodian 2-12 intact, No motor deficit, No sensory deficit, Normal speech Eye Opening: Spontaneous Motor: Obeys Commands Verbal: Oriented GCS Score: 15 - Psych Psych: Normal mood, Normal affect Results - Vitals Vitals: Vital Signs - 24 hr 12/02/22 12/02/22 12/02/22 16:00 17:52 18:46 Temperature 37.1 C Heart Rate 87 69 77 Respiratory 16 16 16 Rate Blood Pressure 134/80 H 114/77 123/68 O2 Saturation 98 99 100 Oxygen O2 Source Room air - Labs Labs: Laboratory Tests 12/02/22 12/02/22 12/02/22 16:09 16:10 16:10 WBC 10.2 RBC 4.61 Hgb 13.1 Hct 39.5 MCV 85.7 MCH 28.4 MCHC 33.2 RDW 12.8 Plt Count 270 MPV 9.8 Neut # (Auto) 5.8 Lymph # (Auto) 3.3 Wilkes # (Auto) 0.8 Eos # (Auto) 0.3 Baso # (Auto) 0.0 Absolute Nucleated RBC 0.00 Nucleated RBC % 0.0 Sodium 136 Potassium 3.9 Chloride 103 Carbon Dioxide 27 Anion Gap 6.0 BUN 20 Creatinine 1.1 Estimated GFR (MDRD) 69 L Glucose 92 Calcium 9.2 Total Bilirubin 0.3 AST 15 ALT 15 Alkaline Phosphatase 79 Total Protein 7.2 Albumin 4.4 Globulin 2.8 Albumin/Globulin Ratio 1.6 Lipase 122 H Urine Color YELLOW Urine Clarity HAZY Urine pH 7.5 Ur Specific [place] 1.020 Urine Protein NEGATIVE Urine Glucose (UA) NEGATIVE Urine Ketones NEGATIVE Urine Occult Blood TRACE-INTA Urine Nitrite NEGATIVE Urine Bilirubin NEGATIVE Urine Urobilinogen 0.2 (NORMAL) Ur Leukocyte Esterase TRACE H Urine RBC 0-5 Urine WBC >25 H Ur Squamous Epith Cells FEW Squamous Urine Bacteria Moderate H Ur Microscopic Review INDICATED Urine Culture Comments INDICATED Urine HCG, Qual NEGATIVE - Rads (name of study) CT abdomen and pelvis Relevant Findings:: EMP independent interpretation of test (Unremarkable exam. No evidence of kidney stone.) Procedures - Bedside sono Bedside sono by EMP: With use of POCUS the left kidney is imaged it is sonographically tender there does appear to be some hydronephrosis. PD Medical Decision Making - ED course Complexity details: reviewed old records, reviewed results, re-evaluated patient, considered differential, d/w patient, d/w family Reviewed Lab Results: We reviewed a complete blood count showing a normal white blood cell count normal hemoglobin hematocrit and platelets. Chemistries were equally benign with normal electrolytes normal kidney and liver function urinalysis showed a s pecific gravity 1.020 trace occult blood trace leukocyte Estrace and greater than 125 white blood cells per high-powered field there was moderate bacteria present in the specimen and the specimen did make the grade for culture. The hCG was negative. My interpretation of these laboratory test in combination with my physical examination leads me to the diagnosis of pyelonephritis. We did find trace occult blood in the urine and some evidence of hydro on POCUS and a CT of the abdomen pelvis was undertaken to rule out the possibility of a stone along with infection. There was no evidence of stone. ED course: 32-year-old Carmen Espino presents with left flank pain and urinary symptoms appears to have urinary tract infection on evaluation of the urine. SShe did not undergo CT scanning of the abdomen and pelvis because of some abnormalities to her laboratory study and the findings on POCUS.he does have a tender left kidney. She is diagnosed with pyelonephritis she is administered intravenous saline Rocephin and Toradol for treatment. Departure - Departure Disposition: 01 Home, Self Care Clinical Impression: Pyelonephritis Condition: Stable Instructions: ED Kidney Infec Female Follow-Up: Ariana Talbot ARNP [Primary Care Provider] - Prescriptions: Sulfamethox/Trimeth 800/160 [Bactrim Ds] 1 each PO BID #14 tablet HYDROcod/ACETAM 5/325 [[place] 5/325] 1 - 2 tablet PO Q6H PRN #14 tablet PRN Reason: Pain Comments: Carmen today looks like you have an infection in your left kidney. You may have additional pain even past the resolution of the infection. I have E scribed some antibiotic and pain medication to [facility] in [place]. The expectation with treatment is improvement in symptoms day by day. We will h ave sensitivities to the organism isolated in about 2 to 3 days. If you get a call from us you may need to change your antibiotic. Discharge Date/Time: 12/02/22 18:47
[2022-12-02] MEDS: cefTRIAXone 1 GM in SODIUM CHLORIDE 0.9% MINIBAG 100 ML IV STA (17:49)
[2022-12-02] MEDS: SODIUM CHLORIDE 0.9% 1,000 ML IV STA (17:49)
[2022-12-02] MEDS ORDERED: cefTRIAXone 1 GM VIAL ONE (17:50)
[2022-12-02] MEDS: HYDROcod/ACET 5/325 Prepack 4 PO STA (18:46)
[2022-12-02 18:48] VITALS: BP 123/68; O2SAT 100
--- NOTE | 2022-12-02 19:18 | CT Report ---
PROCEDURE: CT abdomen pelvis without contrast INDICATIONS: L flank pain TECHNIQUE: Helical axial CT of the abdomen and pelvis was obtained without intravenous contrast and reformatted in multiple planes. Radiation dose reduction was achieved utilizing automated exposure co ntrol or adjustment of mA and/or kV according to patient size. COMPARISON: None. FINDINGS: Study limited by motion artifact Lower thorax: The lung bases are clear. Heart size normal. No hiatal hernia. Liver: Normal in size and attenuation. No contour deformity present. Biliary system: No calcified cholelithiasis or pericholecystic inflammation. No evidence of bile du ct dilatation. Pancreas: Unremarkable without mass or inflammation evident. Spleen: Normal in size and density. Adrenals: Low-density 1.2 cm nodule in the left adrenal gland, probable adenoma. Right gland unremark able. Reproductive system: Unremarkable as visualized. Urinary system: Normal renal size and attenuation. No renal calculi, hydronephrosis, or solid mass p resent. Urinary bladder unremarkable. Gastrointestinal system: The bowel appears unremarkable with no evidence of bowel obstruction or inf lammation. The stomach appears unremarkable. Appendix: No findings to suggest acute appendicitis. Peritoneal spaces: No mesenteric or retroperitoneal adenopathy. No free air. No free fluid. Vasculature: The IVC, aorta and iliac vasculature are unremarkable. Abdominal Wall: Abdominal wall is intact without evidence of ventral or inguinal hernias. Musculoskeletal: Normal bone mineralization. No acute fractures. IMPRESSION: No acute CT findings in the abdomen and pelvis. No evidence of renal calculi are diverticulosis. Incidental small low-density nodule in the left jaw gland, probable adenoma. Reviewed by: Cesar Morgan MD on 12/02/2022 6:17 PM EDUARDO Approved by: Cesar Morgan MD on 12/02/2022 6:17 PM AKSALENA Station ID: [id number]
== END 2022-12-02 18:47 | disposition home or self-care (01) ==
LOC: ED 15:50
DX: N12 Tubulo-interstitial nephritis, not specified as acute or chronic (principal); Z79.899 Other long term (current) drug therapy; Z79.51 Long term (current) use of inhaled steroids
CPT/HCPCS: 36415; 80053; 81001; 81003; 81025; 83690; 85025; 87077; 87086; 96365; 96375; 99284

== ENCOUNTER 2023-03-03 20:22 | Emergency (ER) | payer OTHER, MEDICAID ==
[2023-03-03 20:42] VITALS: O2SAT 100
[2023-03-03] MEDS ORDERED: CHERRY SYRUP 10 ML UDC PO ONE (20:50)
[2023-03-03] MEDS ORDERED: DEXAMETHASONE 10 MG/ML VIAL PO STA (20:50)
[2023-03-03] MEDS ORDERED: IPRATROPIUM/ALBUTEROL 3 ML NEB INH STA (20:50)
--- NOTE | 2023-03-03 20:59 | ED Physician Documentation ---
PD HPI URI - Stated complaint Stated Complaint: SOA,WHEEZING - Chief complaint Chief Complaint: Resp - History obtained from History obtained from: Patient - Additional information Additional information: 32-year-old female with history of asthma presents for asthma exacerbation. Patient has been using her home inhaler as well as her DuoNebs without significant relief. She has been out of her Symbicort and montelukast due to insurance issues. Review of Systems Constitutional: denies: Fever, Chills Nose: denies: Rhinorrhea / runny nose, Congestion Throat: denies: Dental pain / toothache, Sore throat Cardiac: denies: Chest pain / pressure, Palpitations, Calf pain Respiratory: reports: Dyspnea, Wheezing. denies: Cough GI: denies: Abdominal Pain, Nausea, Vomiting : denies: Dysuria, Frequency, Hesitancy PD PAST MEDICAL HISTORY - Past Medical History Past Medical History: Yes Cardiovascular: Other Respiratory: Asthma Neuro: None Endocrine/Autoimmune: None GI: Pancreatitis TRACK MAN: Miscarriage(s) : None HEENT: None Psych: Depression, Anxiety Musculoskeletal: Other Derm: None Other Past Medical History: POTS - Past Surgical History Past Surgical History: Yes General: Other /TRACK MAN: section, Tubal ligation - Present Medications Home Medications: Ambulatory Orders Medication Instructions Recorded Confirmed Albuterol Sulfate [Proair Hfa 1 - 4 puffs IH Q4HR PRN 07/02/16 07/29/22 Inhaler] Budesonide/Formoterol Fumarate 1 inh INH DAILY 11/14/20 07/29/22 [Symbicort 160-4.5 Mcg Inhaler] Montelukast Sodium 10 mg PO DAILY 11/14/20 07/29/22 Ipratropium/Albuterol [Duoneb] 3 ml INH Q6H PRN 08/29/21 07/29/22 Triamcinolone Acetonide [Nasacort] 2 spr NS DAILY 08/29/21 07/29/22 HYDROcod/ACETAM 5/325 [[place] 5/325] 1 - 2 tablet PO Q6H PRN #14 tablet 12/02/22 Metoprolol Succinate [Toprol Xl] 25 mg PO DAILY 12/02/22 12/02/22 Sulfamethox/Trimeth 800/160 1 each PO BID #14 tablet 12/02/22 [Bactrim Ds] Albuterol Sulfate [Proair 90 mcg IH Q4H PRN #1 each 03/03/23 Respiclick] Budesonide/Formoterol Fumarate 10.2 gm IH Q6H PRN #10.2 gm 03/03/23 [Symbicort 160-4.5 Mcg Inhaler] Ipratropium [Atrovent] 0.5 mg INH Q6H 30 Days #300 ml 03/03/23 Ipratropium/Albuterol [Duoneb] 3 ml INH Q6H PRN #60 ml 03/03/23 Montelukast [Singulair] 10 mg PO QPM #30 tablet 03/03/23 predniSONE [Deltasone] 40 mg PO DAILY 5 Days #10 tablet 03/03/23 - Allergies Allergies/Adverse Reactions: Allergies Allergy/AdvReac Type Severity Reaction Status Date / Time No Known Drug Allergies Allergy Verified 03/03/23 20:39 - Social History Does the pt smoke?: No Smoking Status: Never smoker Does the pt drink ETOH?: Yes Does the pt have substance abuse?: No - Immunizations Immunizations are current?: Yes - POLST Patient has POLST: No PD ED PE NORMAL - Vitals Vital signs reviewed: Yes - General General: Alert and oriented X 3, No acute distress, Well developed/nourished - HEENT HEENT: Atraumatic - Neck Neck: Supple, no meningeal sign - Cardiac Cardiac: RRR, Strong equal pulses - Respiratory Respiratory: No respiratory distress, Other (faint basilar expiratory wheezes) Results - Vitals Vitals: Vital Signs - 24 hr 03/03/23 03/03/23 03/03/23 20:35 21:00 22:20 Temperature 36.4 C L Heart Rate 100 94 91 Respiratory 16 20 17 Rate Blood Pressure 132/86 H 110/69 O2 Saturation 100 100 Oxygen O2 Source Room air PD Medical Decision Making - ED course Complexity details: reviewed old records, reviewed results, re-evaluated patient, considered differential, d/w patient ED course: Flareup of patient's asthma. Saturating well on room air and speaking in complete sentences without dyspnea but does have wheezes in the bilateral bases. Patient also has been out of her chronic asthma medications due to insurance issues. No indication for labs or imaging at this time as patient states this is consistent with previous flareups. Patient was given steroids as well as numerous DuoNebs. After DuoNebs there were very trace wheezes at the bases, but patient reported feeling much improved and stated she was ready to go home. Refill of patient's medications sent to pharmacy of choice as well as a short course of steroids. Patient will return to the emergency department for new or worsening respiratory concerns. Departure - Departure Disposition: Home, Self Care Clinical Impression: Asthma Qualifiers: Asthma severity: moderate Asthma persistence: unspecified Asthma complication type: with acute exacerbation Qualified Code(s): J45.901 - Unspecified asthma with (acute) exacerbation Condition: Stable Instructions: Asthma Dc Prescriptions: Ipratropium [Atrovent] 0.5 mg INH Q6H 30 Days #300 ml predniSONE [Deltasone] 40 mg PO DAILY 5 Days #10 tablet Ipratropium/Albuterol [Duoneb] 3 ml INH Q6H PRN #60 ml PRN Reason: Wheezing Albuterol Sulfate [Proair Respiclick] 90 mcg IH Q4H PRN #1 each PRN Reason: Wheezing Montelukast [Singulair] 10 mg PO QPM #30 tablet Budesonide/Formoterol Fumarate [Symbicort 160-4.5 Mcg Inhaler] 10.2 gm IH Q6H PRN #10.2 gm PRN Reason: Wheezing Forms: PCP List Discharge Date/Time: 03/03/23 22:25
[2023-03-03 22:33] VITALS: BP 110/69
== END 2023-03-03 22:25 | disposition home or self-care (01) ==
LOC: ED 20:22
DX: J45.901 Unspecified asthma with (acute) exacerbation (principal); Z79.51 Long term (current) use of inhaled steroids; Z79.899 Other long term (current) drug therapy
CPT/HCPCS: 36415; 94640; 94664; 99283; 99284

== ENCOUNTER 2023-05-28 08:30 | Emergency (ER) | payer OTHER, MEDICAID ==
--- NOTE | 2023-05-28 08:43 | ED Physician Documentation ---
PD HPI UPPER EXT INJURY - Stated complaint Stated Complaint: GLF/LT WRIST/BACK PX - Chief complaint Chief Complaint: Trauma Ch/Bk - History obtained from History obtained from: Patient - History of Present Illness Location: Left, Wrist Type of injury: Fall (slipped on ice getting [place] of car [place], landing left wrist, elbow and lateral mid back.) Where injury occurred: Other (parking lot going into store) Timing - duration: Hours Timing - details: Abrupt onset, Still present Worsened by: Moving Associated symptoms: No: Weakness, Numbness, Swelling Similar symptoms before: Has not had sx before PD PAST MEDICAL HISTORY - Past Medical History Cardiovascular: Other Respiratory: Asthma Neuro: None Endocrine/Autoimmune: None GI: Pancreatitis PEDIATRIC PHYSICAL THERAPY ASSISTANT: Miscarriage(s) : None HEENT: None Psych: Depression, Anxiety Musculoskeletal: Other Derm: None Other Past Medical History: POTS - Past Surgical History Past Surgical History: Yes General: Other /PEDIATRIC PHYSICAL THERAPY ASSISTANT: section, Tubal ligation - Present Medications Home Medications: Ambulatory Orders Medication Instructions Recorded Confirmed Albuterol Sulfate [Proair Hfa 1 - 4 puffs IH Q4HR PRN 07/02/16 07/29/22 Inhaler] Budesonide/Formoterol Fumarate 1 inh INH DAILY 11/14/20 07/29/22 [Symbicort 160-4.5 Mcg Inhaler] Montelukast Sodium 10 mg PO DAILY 11/14/20 07/29/22 Ipratropium/Albuterol [Duoneb] 3 ml INH Q6H PRN 08/29/21 07/29/22 Triamcinolone Acetonide [Nasacort] 2 spr NS DAILY 08/29/21 07/29/22 HYDROcod/ACETAM 5/325 [[place] 5/325] 1 - 2 tablet PO Q6H PRN #14 tablet 12/02/22 Metoprolol Succinate [Toprol Xl] 25 mg PO DAILY 12/02/22 12/02/22 Sulfamethox/Trimeth 800/160 1 each PO BID #14 tablet 12/02/22 [Bactrim Ds] Albuterol Sulfate [Proair 90 mcg IH Q4H PRN #1 each 03/03/23 Respiclick] Budesonide/Formoterol Fumarate 10.2 gm IH Q6H PRN #10.2 gm 03/03/23 [Symbicort 160-4.5 Mcg Inhaler] Ipratropium [Atrovent] 0.5 mg INH Q6H 30 Days #300 ml 03/03/23 Ipratropium/Albuterol [Duoneb] 3 ml INH Q6H PRN #60 ml 03/03/23 Montelukast [Singulair] 10 mg PO QPM #30 tablet 03/03/23 predniSONE [Deltasone] 40 mg PO DAILY 5 Days #10 tablet 03/03/23 - Allergies Allergies/Adverse Reactions: Allergies Allergy/AdvReac Type Severity Reaction Status Date / Time No Known Drug Allergies Allergy Verified 05/28/23 08:40 - Social History Does the pt smoke?: No Smoking Status: Never smoker Does the pt drink ETOH?: Yes Does the pt have substance abuse?: No - Immunizations Immunizations are current?: Yes - POLST Patient has POLST: No PD ED PE NORMAL - Vitals Vital signs reviewed: Yes - General General: Alert and oriented X 3, No acute distress, Well developed/nourished - Neck Neck: Supple, no meningeal sign, No bony TTP - Cardiac Cardiac: RRR, No murmur - Respiratory Respiratory: Clear bilaterally, Other (no chestwall tenderness) - Abdomen Abdomen: Soft, Non tender - Back Back: No spinal TTP, Other (some soft tissue tender left paralumbar area. Good ROM. left wrist with dorsal tender. None at snuffbox. Elbow and shoulder full ROM and extension at elbow, rotational movement at shoulder all good. ) - Derm Derm: Normal color, Warm and dry - Neuro Neuro: Alert and oriented X 3, No motor deficit, No sensory deficit Results - Vitals Vitals: Oxygen O2 Source Room air PD Medical Decision Making - ED course Complexity details: reviewed results (no bony abnormalities. Presume sprain wrist and low back. sprain/contusion of elbow/shoulder. ), considered differential (pain in lower back but not midline and only mild. Some of elbow and shoulder. Mostly wirst pain. Pt does not feel there is need for imaging back/upper ext. Can get wrist xray. ), d/w patient Departure - Departure Disposition: 01 Home, Self Care Clinical Impression: Fall from slipping on ice Qualifiers: Encounter type: initial encounter Qualified Code(s): W00.9XXA - Unspecified fall due to ice and snow, initial encounter Left wrist sprain Qualifiers: Encounter type: initial encounter Qualified Code(s): S63.502A - Unspecified sprain of left wrist, initial encounter Left elbow contusion Qualifiers: Encounter type: initial encounter Qualified Code(s): S50.02XA - Contusion of left elbow, initial encounter Back strain Qualifiers: Encounter type: initial encounter Qualified Code(s): S39.012A - Strain of muscle, fascia and tendon of lower back, initial encounter Condition: Stable Record reviewed to determine appropriate education?: Yes Instructions: ED Sprain Wrist Follow-Up: Ariana Talbot ARNP [Primary Care Provider] - Comments: I agree with you that it does not sound likely that you broke any bones in your thoracic back nor your elbow. Clinically these would typically be more evident. The wrist can be more subtle with bony injuries so we did do an x-ray and I do not see anything broken. Obviously still sprained and you can protect it with wrist splint to help guard it. Activity as tolerated. I would suggest some anti-inflammatory such as ibuprofen or naproxen 2-3 times daily for the next several days or so. Add Tylenol every 4-6 hours if needed for pains. I would anticipate improvement over the next several days and resolved within a week or so. Recheck if not better in that timeframe. Forms: PCP List Discharge Date/Time: 05/28/23 10:05
[2023-05-28 08:50] VITALS: BP 134/82; O2SAT 98
[2023-05-28] MEDS: IBUPROFEN 600 MG TABLET PO STA (09:28)
--- NOTE | 2023-05-28 13:33 | XRAY Report ---
PROCEDURE: Wrist 3+V LT INDICATIONS: fall onto wrist and elbow TECHNIQUE: 4 views of the wrist were acquired. COMPARISON: None. FINDINGS: Bones: No fractures or dislocations. No suspicious bony lesions. Soft tissues: No suspicious soft tissue calcifications or masses. IMPRESSION: No acute bony abnormality. If there is anatomic snuff box tenderness, consider wrist immobilization a nd repeat radiographs in 10-14 days or cross-sectional imaging now. If pain persists with conservativ e management, consider repeat radiographs in 10-14 days or cross-sectional imaging. Reviewed by: Anthony Dixon MD on 05/28/2023 9:40 AM PST Approved by: Anthony Dixon MD on 05/28/2023 9:40 AM PST Station ID: [id number]
== END 2023-05-28 10:05 | disposition home or self-care (01) ==
LOC: ED 08:30
DX: S63.502A Unspecified sprain of left wrist, initial encounter (principal); S50.02XA Contusion of left elbow, initial encounter; S39.012A Strain of muscle, fascia and tendon of lower back, initial encounter; W18.30XA Fall on same level, unspecified, initial encounter; Y92.512 Supermarket, store or market as the place of occurrence of the external cause
CPT/HCPCS: 73110; 99283; A9270